=== PATIENT | female | born 1955 | race Caucasian/White ===

== ENCOUNTER 2018-06-19 17:20 | Emergency (ER) | payer MEDICAID ==
[~2018-06-19] VITALS: Ht 170.2 cm; Wt 108.9 kg
[2018-06-19 17:25] VITALS: BP_SYST 111
[2018-06-19] MEDS ORDERED: IBUPROFEN 600 MG TABLET PO ONE (17:30)
[2018-06-19 18:21] VITALS: BP_SYST 111
== END 2018-06-19 18:21 | disposition home or self-care (01) ==
LOC: SED 17:20
DX: S83.91XA Sprain of unspecified site of right knee, initial encounter (principal); S23.41XA Sprain of ribs, initial encounter; W19.XXXA Unspecified fall, initial encounter; Y93.89 Activity, other specified; Y92.89 Other specified places as the place of occurrence of the external cause; Y99.8 Other external cause status; I10 Essential (primary) hypertension; Z86.2 Personal history of diseases of the blood and blood-forming organs and certain disorders involving the immune mechanism
CPT/HCPCS: 71100; 73560-TC; 99284